=== PATIENT | male | born 1940 | race Caucasian/White ===

== ENCOUNTER 2019-06-30 06:20 | Day surgery (SDC) | payer MEDICARE, OTHER ==
[~2019-06-30 06:20] MED LIST: Dextrose 5%-0.45% NaCl 1,000 ML IV SCH; Midazolam 1 MG/ML 2 ML SDV ONE; Sodium Chloride 0.9% 10 ML Syringe FLUSH PRN; fentaNYL 100 MCG/2 ML SDV ONE
[2019-06-30] MEDS ORDERED: Midazolam 1 MG/ML 2 ML SDV IV ONE ×4 (06:21→07:47)
[2019-06-30] MEDS ORDERED: fentaNYL 100 MCG/2 ML SDV IV ONE ×3 (06:21→07:40)
[2019-06-30 10:06] VITALS: BP 125/70; PULSE 80
--- NOTE | 2019-06-30 11:04 | OR ---
DATE: 06/30/2019 PROCEDURE: Total colonoscopy. INSTRUMENT USED: PCF-H190DL Olympus video colonoscope. PREMEDICATIONS: Fentanyl 100 mcg intravenous, Versed 2.5 mg intravenous. Nasal O2 cannula. The procedure was done under pulse oximetry, BP recording, and surveillance monitor. INDICATION: The patient with rectal bleeding. Colonoscopic examination is done for detection of any polypoid lesions and removal, endoscopic hemostasis therapy if needed. DESCRIPTION OF PROCEDURE: Initial rectal exam was unremarkable. Rigid anoscopy showed moderate-sized internal hemorrhoids without bleeding from them. The colonoscope was passed with ease up to the ileocecal area. Photographs were taken of the normal-appearing cecum identified by double-bulged ileocecal folds. No bleeding was noted from any of the visualized areas at the commencement of the examination. Bowel preparation was found to be adequate. [place] scale 2 in all the regions, total score 6. No stricture. No vascular ectasia. No large isolated ulcerations seen. No evidence of diffuse inflammatory bowel disease in the form of friability, contact bleeding, or ulcerations. No polyp or tumor mass identified. Probing the proximal sides of folds and flexures using adequate distention and clearing up the stool material, withdrawal of the scope was made. Cecum to rectum time over 6 minutes. No bleeding was noted from any of the visualized areas at the completion of the examination. IMPRESSION: Internal hemorrhoids. The patient tolerated the procedure well. [facility] /[id number]
== END 2019-06-30 09:55 | disposition home or self-care (01) ==
LOC: DL.ENDO 06:20
PROVIDERS: ATTEND Internal Medicine Gastroenterology
DX: K64.8 Other hemorrhoids (principal); E66.09 Other obesity due to excess calories; E78.5 Hyperlipidemia, unspecified; J44.9 Chronic obstructive pulmonary disease, unspecified; I25.10 Atherosclerotic heart disease of native coronary artery without angina pectoris; K22.70 Barrett's esophagus without dysplasia; Z95.1 Presence of aortocoronary bypass graft; Z98.890 Other specified postprocedural states; Z87.891 Personal history of nicotine dependence; Z87.19 Personal history of other diseases of the digestive system; Z68.27 Body mass index [BMI] 27.0-27.9, adult
CPT/HCPCS: 45378; J2250; J3010; J7042; G0121

== ENCOUNTER 2024-11-22 18:45 | Inpatient (IN) | payer MEDICARE, OTHER ==
[2024-11-22] MEDS: Nitroglycerin 0.4 MG Tab.SL SL ONE (19:27)
[2024-11-22 19:32] LABS: PLATELET COUNT,PLT 260.0 10^3/uL (150-450); RED BLOOD CELL COUNT 3.92 10^6/uL (4.6-6.2); WHITE BLOOD CELL COUNT,WBC 10.8 10^3/uL (5.0-10.0)
[2024-11-22 19:44] LABS: BLOOD UREA NITROGEN,BUN 13 mg/dL (7-18); CARBON DIOXIDE,CO2 29 mmol/L (21-32); CHLORIDE,CL 100 mmol/L (98-107); CREATININE 0.77 mg/dL (0.70-1.30); GLUCOSE RANDOM 155 mg/dL (70-99); POTASSIUM,K 4.0 mmol/L (3.5-5.1); SODIUM,NA 139 mmol/L (136-145)
[2024-11-22 19:48] LABS: ESTIMATED GFR 89 mL/min (>=60)
[2024-11-22 19:58] LABS: B-TYPE NATRIURETIC PEPTIDE,BNP 811 pg/ml (0-100)
[2024-11-22] MEDS: Albuterol 0.083% 2.5 MG/3 ML Neb Soln NEB ONE (21:21)
[2024-11-23] MEDS ORDERED: hydrALAZINE 20 MG/ML SDV IVPUSH PRN (00:43)
[2024-11-23] MEDS ORDERED: Ondansetron 4 MG/2 ML SDV IVPUSH PRN (00:44)
[2024-11-23] MEDS ORDERED: Magnesium Hydroxide 400 MG/5 ML Susp 30 ML Cup PO PRN (00:44)
[2024-11-23] MEDS ORDERED: Sennosides/Docusate Sodium 50-8.6 MG Tab PO PRN (00:44)
[2024-11-23] MEDS: Iopamidol 755 Mg/ML 100 ML Bottle IVPUSH ONE (00:54)
[2024-11-23] MEDS: Albuterol 0.083% 2.5 MG/3 ML Neb Soln ONE (00:58)
[2024-11-23] MEDS: methylPREDNISolone Sodium Succinate 125 MG/2 ML SDV ONE (00:58)
[2024-11-23] MEDS: Levofloxacin/Dextrose 5%-Water 150 ML IV ONE (00:58)
[2024-11-23] MEDS ORDERED: Magnesium Sulfate/D5W 1 GM/100 ML BAG IV ONE (01:10)
[2024-11-23] MEDS ORDERED: guaiFENesin/Dextromethorphan 100-10 MG/5 ML Soln 5 ML Cup PO PRN (01:11)
[2024-11-23] MEDS ORDERED: Nitroglycerin 0.4 MG Tab.SL SL PRN (01:11)
[2024-11-23 02:11] LABS: CORONAVIRUS COVID-19 NAA NEGATIVE (NEGATIVE); INFLUENZA A NAA NEGATIVE (NEGATIVE); INFLUENZA B NAA NEGATIVE (NEGATIVE); RESPIRATORY SYNCYTIAL VIR NAA NEGATIVE (NEGATIVE)
[2024-11-23 06:19] LABS: BASOPHILS PERCENT AUTO 0.1 % (0.0-1.0); EOSINOPHILS PERCENT AUTO 0.0 % (1.0-3.0); LYMPHOCYTES PERCENT AUTO 1.7 % (20.5-50.1); MONOCYTES PERCENT AUTO 1.9 % (2-8); NEUTROPHILS PERCENT AUTO 96.3 % (42.2-75.2); PLATELET COUNT,PLT 211 10^3/uL (150-450); RED BLOOD CELL COUNT 3.38 10^6/uL (4.6-6.2); WHITE BLOOD CELL COUNT,WBC 7.5 10^3/uL (5.0-10.0)
[2024-11-23 06:45] LABS: ALANINE AMINOTRANSFERASE,ALT 36.0 U/L (16-63); ASPARTATE AMNIOTRANSFERASE,AST 19.0 U/L (15-37); BILIRUBIN TOTAL 0.4 mg/dL (0.2-1.0); BLOOD UREA NITROGEN,BUN 12.0 mg/dL (7-18); CARBON DIOXIDE,CO2 27.0 mmol/L (21-32); CHLORIDE,CL 104.0 mmol/L (98-107); CHOLESTEROL HDL 63.0 mg/dL (40-59); CHOLESTEROL LDL CALCULATED 50.0 mg/dL (0-100); CHOLESTEROL TOTAL 117.0 mg/dL (0-199); CREATININE 0.7 mg/dL (0.70-1.30); EST CRCL DRUG DOSING (CG) 89.3 mL/min; GLUCOSE RANDOM 169.0 mg/dL (70-99); POTASSIUM,K 4.1 mmol/L (3.5-5.1); PROTEIN TOTAL,TP 6.3 g/dL (6.4-8.2); SODIUM,NA 141.0 mmol/L (136-145); T4 FREE 1.01 ng/dL (0.76-1.46); TSH ULTRASENSITIVE 0.44 uIU/mL (0.36-3.74)
[2024-11-23 06:50] LABS: A/G RATIO 0.75; ESTIMATED GFR 92.0 mL/min (>=60)
[2024-11-23] MEDS: Formoterol/Mometasone 100-5 MCG 8.8 GM Inhaler INH SCH (06:56)
[2024-11-23] MEDS: Tiotropium Bromide 4 GM Inhalation Spray (2.5mcg/1 dose; 10 doses) INH SCH (06:57)
[2024-11-23] MEDS: Dexamethasone 4 MG/ML SDV IVPUSH SCH (09:39)
[2024-11-23] MEDS: Metoprolol Tartrate 5 MG/5 ML SDV IVPUSH PRN (10:23)
[2024-11-23] MEDS: Magnesium Sulfate/D5W 1 GM IV ONE ×2 (10:48→11:37)
[2024-11-23] MEDS: Menthol 10%/Methyl Salicylate 15% 85 GM Tube TOP SCH (20:40)
[2024-11-24 06:04] LABS: BASOPHILS PERCENT AUTO 0.1 % (0.0-1.0); EOSINOPHILS PERCENT AUTO 0.0 % (1.0-3.0); LYMPHOCYTES PERCENT AUTO 2.9 % (20.5-50.1); MONOCYTES PERCENT AUTO 2.3 % (2-8); NEUTROPHILS PERCENT AUTO 94.7 % (42.2-75.2); PLATELET COUNT,PLT 227 10^3/uL (150-450); RED BLOOD CELL COUNT 3.34 10^6/uL (4.6-6.2); WHITE BLOOD CELL COUNT,WBC 10.5 10^3/uL (5.0-10.0)
[2024-11-24 06:26] LABS: ALANINE AMINOTRANSFERASE,ALT 34.0 U/L (16-63); ASPARTATE AMNIOTRANSFERASE,AST 15.0 U/L (15-37); BILIRUBIN TOTAL 0.2 mg/dL (0.2-1.0); BLOOD UREA NITROGEN,BUN 18.0 mg/dL (7-18); CARBON DIOXIDE,CO2 27.0 mmol/L (21-32); CHLORIDE,CL 105.0 mmol/L (98-107); CREATININE 0.82 mg/dL (0.70-1.30); EST CRCL DRUG DOSING (CG) 76.23 mL/min; GLUCOSE RANDOM 170.0 mg/dL (70-99); POTASSIUM,K 4.3 mmol/L (3.5-5.1); PROTEIN TOTAL,TP 6.4 g/dL (6.4-8.2); SODIUM,NA 140.0 mmol/L (136-145)
[2024-11-24 06:29] LABS: A/G RATIO 0.73; ESTIMATED GFR 88.0 mL/min (>=60)
[2024-11-24] MEDS: ENTRESTO PO SCH (20:14)
[2024-11-25 06:35] LABS: BASOPHILS PERCENT AUTO 0.2 % (0.0-1.0); EOSINOPHILS PERCENT AUTO 0.0 % (1.0-3.0); LYMPHOCYTES PERCENT AUTO 2.7 % (20.5-50.1); MONOCYTES PERCENT AUTO 2.9 % (2-8); NEUTROPHILS PERCENT AUTO 94.2 % (42.2-75.2); PLATELET COUNT,PLT 253 10^3/uL (150-450); RED BLOOD CELL COUNT 3.58 10^6/uL (4.6-6.2); WHITE BLOOD CELL COUNT,WBC 13.5 10^3/uL (5.0-10.0)
[2024-11-25 07:04] LABS: ALANINE AMINOTRANSFERASE,ALT 39.0 U/L (16-63); ASPARTATE AMNIOTRANSFERASE,AST 27.0 U/L (15-37); BILIRUBIN TOTAL 0.2 mg/dL (0.2-1.0); BLOOD UREA NITROGEN,BUN 24.0 mg/dL (7-18); CARBON DIOXIDE,CO2 28.0 mmol/L (21-32); CHLORIDE,CL 105.0 mmol/L (98-107); CREATININE 0.98 mg/dL (0.70-1.30); EST CRCL DRUG DOSING (CG) 63.79 mL/min; GLUCOSE RANDOM 166.0 mg/dL (70-99); POTASSIUM,K 5.4 mmol/L (3.5-5.1); PROTEIN TOTAL,TP 7.2 g/dL (6.4-8.2); SODIUM,NA 142.0 mmol/L (136-145)
[2024-11-25 07:16] LABS: A/G RATIO 0.76; ESTIMATED GFR 77.0 mL/min (>=60)
[2024-11-25 08:33] VITALS: BP 115/83; PULSE 122
== END 2024-11-25 08:15 | disposition home or self-care (01) | DRG 177 ==
LOC: DL.ED 18:45 → DL.MS 11-23
PROVIDERS: ADMIT Internal Medicine; ATTEND Internal Medicine
DX: J69.0 Pneumonitis due to inhalation of food and vomit (principal); I50.23 Acute on chronic systolic (congestive) heart failure; J96.01 Acute respiratory failure with hypoxia; J44.1 Chronic obstructive pulmonary disease with (acute) exacerbation; I47.19 Other supraventricular tachycardia; I25.119 Atherosclerotic heart disease of native coronary artery with unspecified angina pectoris; I11.0 Hypertensive heart disease with heart failure; H54.7 Unspecified visual loss; E78.00 Pure hypercholesterolemia, unspecified; K21.9 Gastro-esophageal reflux disease without esophagitis; N40.0 Benign prostatic hyperplasia without lower urinary tract symptoms; I50.9 Heart failure, unspecified; F32.A Depression, unspecified; Z96.612 Presence of left artificial shoulder joint; Z66 Do not resuscitate; I25.5 Ischemic cardiomyopathy; M19.90 Unspecified osteoarthritis, unspecified site; Z95.1 Presence of aortocoronary bypass graft; Z98.49 Cataract extraction status, unspecified eye; Z98.890 Other specified postprocedural states; Z79.52 Long term (current) use of systemic steroids; I25.2 Old myocardial infarction; Z79.82 Long term (current) use of aspirin; Z79.899 Other long term (current) drug therapy
CPT/HCPCS: 36415; 71045; 80048; 83735; 83880; 84484 ×2; 85027; 85379; 87040 ×2; 93005 ×2; 94640 ×2; 99285; A9270 ×5; J7512; 71275; 80053; 80061; 84439; 84443; 85025; 86140; 87637; 94010; 94664; J0456; J0696; J1100; J1650; J2470; J3475; J3490; J7030; J7050; J8540; Q9967

== ENCOUNTER 2024-11-25 14:50 | Emergency (ER) | payer MEDICARE, OTHER ==
[2024-11-25 16:03] VITALS: PULSE 88
== END 2024-11-25 15:54 | disposition home or self-care (01) ==
LOC: DL.ED 14:50
DX: S00.31XA Abrasion of nose, initial encounter (principal); Z79.899 Other long term (current) drug therapy; Z95.0 Presence of cardiac pacemaker; W01.198A Fall on same level from slipping, tripping and stumbling with subsequent striking against other object, initial encounter; Y93.89 Activity, other specified
CPT/HCPCS: 99282; 99283